=== PATIENT | female | born 1975 | race Caucasian/White ===

== ENCOUNTER 2020-04-29 07:44 | Outpatient (REF) | payer OTHER, SELFPAY | END 2020-04-29 07:45 | disposition home or self-care (01) | LOC: HO.MDS 07:44 | PROVIDERS: PCP Internal Medicine; Visit Provider Internal Medicine Pulmonary Disease | DX: D86.2 Sarcoidosis of lung with sarcoidosis of lymph nodes (principal); K27.9 Peptic ulcer, site unspecified, unspecified as acute or chronic, without hemorrhage or perforation; F41.8 Other specified anxiety disorders; E66.9 Obesity, unspecified; F90.0 Attention-deficit hyperactivity disorder, predominantly inattentive type; K74.3 Primary biliary cirrhosis | CPT/HCPCS: 96413; 96415; J1745 ==

== ENCOUNTER 2020-05-27 07:37 | Outpatient (REF) | payer OTHER, SELFPAY | END 2020-05-27 07:38 | disposition home or self-care (01) | LOC: HO.MDS 07:37 | PROVIDERS: Visit Provider Internal Medicine Pulmonary Disease | DX: D86.9 Sarcoidosis, unspecified (principal); K27.9 Peptic ulcer, site unspecified, unspecified as acute or chronic, without hemorrhage or perforation; K74.3 Primary biliary cirrhosis; F41.1 Generalized anxiety disorder; F90.0 Attention-deficit hyperactivity disorder, predominantly inattentive type; E66.9 Obesity, unspecified | CPT/HCPCS: 96413; 96415; J1745 ==

== ENCOUNTER → 2020-07-20 13:19 | Outpatient (BNVA) | payer OTHER, SELFPAY | PROVIDERS: PCP Internal Medicine; Visit Provider Internal Medicine Pulmonary Disease | DX: Z13.89 Encounter for screening for other disorder (principal) ==

== ENCOUNTER 2020-07-22 07:49 | Outpatient (REF) | payer OTHER, SELFPAY | END 2020-07-22 07:50 | disposition home or self-care (01) | LOC: HO.MDS 07:49 | PROVIDERS: Visit Provider Internal Medicine Pulmonary Disease | DX: D86.9 Sarcoidosis, unspecified (principal) | CPT/HCPCS: 96413; 96415; J1745 ==

== ENCOUNTER → 2020-09-20 09:32 | Outpatient (BNVA) | payer OTHER, SELFPAY | PROVIDERS: PCP Internal Medicine; Visit Provider Internal Medicine Pulmonary Disease ==

== ENCOUNTER 2020-10-05 10:04 | Outpatient (REF) | payer OTHER, SELFPAY ==
--- NOTE | ~2020-10-05 | XR_ITS ---
EXAMINATION: XR PELVIS XR BILATERAL HAND XR BILATERAL KNEE CLINICAL INFORMATION: Pain. COMPARISON: None TECHNIQUE: Pelvis one view. 3 views each hand. 4 views each knee. FINDINGS: Pelvis: There is normal symmetry of bilateral hip joints and SI joints. Visualized bones are grossly unremarkable. No fracture or lytic process seen. There is no soft tissue mass in the pelvis. Left knee: The bones and joints are unremarkable. No loose bodies, bony erosive changes or fracture seen. There is no abnormal joint effusion. Right knee: The bones and joints are unremarkable. The joint space is maintained normal. No bony erosive changes, loose bodies or joint effusion seen. Right hand: The bones and joint space is normal. No bony erosive changes. No spurring. No fracture or soft tissues are normal. Left hand: The bones and joint space is normal. No bony erosive changes. No spurring. No acute fracture. The left wrist appears unremarkable as well. The soft tissues are normal. XR/XR knee LT 3V IMPRESSION: 1. Unremarkable AP pelvis exam. 2. Unremarkable bilateral knee exam. 3. Unremarkable bilateral hand exam.
--- NOTE | ~2020-10-05 | XR_ITS ---
EXAMINATION: XR PELVIS XR BILATERAL HAND XR BILATERAL KNEE CLINICAL INFORMATION: Pain. COMPARISON: None TECHNIQUE: Pelvis one view. 3 views each hand. 4 views each knee. FINDINGS: Pelvis: There is normal symmetry of bilateral hip joints and SI joints. Visualized bones are grossly unremarkable. No fracture or lytic process seen. There is no soft tissue mass in the pelvis. Left knee: The bones and joints are unremarkable. No loose bodies, bony erosive changes or fracture seen. There is no abnormal joint effusion. Right knee: The bones and joints are unremarkable. The joint space is maintained normal. No bony erosive changes, loose bodies or joint effusion seen. Right hand: The bones and joint space is normal. No bony erosive changes. No spurring. No fracture or soft tissues are normal. Left hand: The bones and joint space is normal. No bony erosive changes. No spurring. No acute fracture. The left wrist appears unremarkable as well. The soft tissues are normal. XR/XR pelvis 1-2V IMPRESSION: 1. Unremarkable AP pelvis exam. 2. Unremarkable bilateral knee exam. 3. Unremarkable bilateral hand exam.
--- NOTE | ~2020-10-05 | XR_ITS ---
EXAMINATION: XR PELVIS XR BILATERAL HAND XR BILATERAL KNEE CLINICAL INFORMATION: Pain. COMPARISON: None TECHNIQUE: Pelvis one view. 3 views each hand. 4 views each knee. FINDINGS: Pelvis: There is normal symmetry of bilateral hip joints and SI joints. Visualized bones are grossly unremarkable. No fracture or lytic process seen. There is no soft tissue mass in the pelvis. Left knee: The bones and joints are unremarkable. No loose bodies, bony erosive changes or fracture seen. There is no abnormal joint effusion. Right knee: The bones and joints are unremarkable. The joint space is maintained normal. No bony erosive changes, loose bodies or joint effusion seen. Right hand: The bones and joint space is normal. No bony erosive changes. No spurring. No fracture or soft tissues are normal. Left hand: The bones and joint space is normal. No bony erosive changes. No spurring. No acute fracture. The left wrist appears unremarkable as well. The soft tissues are normal. XR/XR knee RT 3V IMPRESSION: 1. Unremarkable AP pelvis exam. 2. Unremarkable bilateral knee exam. 3. Unremarkable bilateral hand exam.
--- NOTE | ~2020-10-05 | XR_ITS ---
EXAMINATION: XR PELVIS XR BILATERAL HAND XR BILATERAL KNEE CLINICAL INFORMATION: Pain. COMPARISON: None TECHNIQUE: Pelvis one view. 3 views each hand. 4 views each knee. FINDINGS: Pelvis: There is normal symmetry of bilateral hip joints and SI joints. Visualized bones are grossly unremarkable. No fracture or lytic process seen. There is no soft tissue mass in the pelvis. Left knee: The bones and joints are unremarkable. No loose bodies, bony erosive changes or fracture seen. There is no abnormal joint effusion. Right knee: The bones and joints are unremarkable. The joint space is maintained normal. No bony erosive changes, loose bodies or joint effusion seen. Right hand: The bones and joint space is normal. No bony erosive changes. No spurring. No fracture or soft tissues are normal. Left hand: The bones and joint space is normal. No bony erosive changes. No spurring. No acute fracture. The left wrist appears unremarkable as well. The soft tissues are normal. XR/XR hand RT min 3V IMPRESSION: 1. Unremarkable AP pelvis exam. 2. Unremarkable bilateral knee exam. 3. Unremarkable bilateral hand exam.
--- NOTE | ~2020-10-05 | XR_ITS ---
EXAMINATION: XR PELVIS XR BILATERAL HAND XR BILATERAL KNEE CLINICAL INFORMATION: Pain. COMPARISON: None TECHNIQUE: Pelvis one view. 3 views each hand. 4 views each knee. FINDINGS: Pelvis: There is normal symmetry of bilateral hip joints and SI joints. Visualized bones are grossly unremarkable. No fracture or lytic process seen. There is no soft tissue mass in the pelvis. Left knee: The bones and joints are unremarkable. No loose bodies, bony erosive changes or fracture seen. There is no abnormal joint effusion. Right knee: The bones and joints are unremarkable. The joint space is maintained normal. No bony erosive changes, loose bodies or joint effusion seen. Right hand: The bones and joint space is normal. No bony erosive changes. No spurring. No fracture or soft tissues are normal. Left hand: The bones and joint space is normal. No bony erosive changes. No spurring. No acute fracture. The left wrist appears unremarkable as well. The soft tissues are normal. XR/XR hand LT min 3V IMPRESSION: 1. Unremarkable AP pelvis exam. 2. Unremarkable bilateral knee exam. 3. Unremarkable bilateral hand exam.
[2020-10-05 15:46] LABS: MANUAL DIFF FLAG NO
[2020-10-05 15:52] LABS: Basophils Percent Auto 0.3 % (0-2); Eosinophils Absolute Auto 0.3 X10*3/uL (0.0-0.4); Eosinophils Percent Auto 5.1 % (0-4); Hematocrit 39.8 % (37-47); Hemoglobin 13.3 g/dl (12.0-16.0); Imm Gran Abs Auto 0.01 X10*3/uL (0.00-0.03); Imm Gran Pct Auto 0.2 % (0.0-0.4); Lymphocytes Absolute Auto 1.5 X10*3/uL (1.2-4.9); Lymphocytes Percent Auto 25.2 % (20-40); Mean Corpuscular HGB Conc 33.4 g/dl (31.0-35.0); Mean Corpuscular Hemoglobin 30.4 pg (27.0-33.0); Mean Corpuscular Volume 90.9 fL (80-98); Mean Platelet Volume 12.2 fL (9.4-12.3); Monocytes Absolute Auto 0.5 X10*3/uL (0.1-1.2); Monocytes Percent Auto 8.8 % (2-11); Neutrophils Absolute Auto 3.6 X10*3/uL (2.0-8.3); Neutrophils Percent Auto 60.4 % (45-73); Platelet Count 232 X10*3/uL (160-400); Red Blood Count 4.38 X10*6/uL (4.20-5.50); Red Cell Distribution Width 12.9 % (11.0-16.0); White Blood Count 5.9 X10*3/uL (4.8-10.8)
[2020-10-05 16:06] LABS: Prothrombin Time 12.4 SEC (10.8-13.0)
[2020-10-05 16:32] LABS: Alanine Aminotransferase 132 U/L (0-31); Albumin Level 4.3 g/dL (3.5-5.0); Alkaline Phosphatase 213 U/L (39-117); Aspartate Amino Transferase 76 U/L (5-31); Bilirubin Direct 0.4 mg/dL (0.0-0.5); Gamma Glutamyl Transpeptidase 168 U/L (7-33); Total Protein 7.8 g/dL (6.5-8.0)
[2020-10-05 16:43] LABS: Vitamin D 25-OH Total 23.4 ng/mL (>30)
[2020-10-06 07:57] LABS: Hepatitis A Antibody IgG Nonreactive (Nonreactive); ~Hepatitis A Antibody IgG 0.84 S/CO (0.00-0.99)
[2020-10-06 08:24] LABS: HBc Num1 0.36 S/CO (0.00-0.79); Hepatitis B Core Antibody Nonreactive (Nonreactive)
[2020-10-06 08:45] LABS: HBS Num1 1.14 mIU/mL (0-7.99); HBsAGNum1 0.26 S/CO (0.00-0.99); Hepatitis B Surface Antigen Negative (Negative); ~Hepatitis B Surface Antibody NONREACTIVE (Nonreactive)
[2020-10-08 18:46] LABS: TS Negative Control Passed; TS Panel A 0; TS Panel B 0; TS Positive Control Passed; TSpotTB Negative (SeeBelow)
[2020-10-09 10:37] LABS: Vitamin A 31 mcg/dL (38-98)
== END 2020-10-05 10:05 | disposition home or self-care (01) ==
LOC: HO.LAB 10:04
PROVIDERS: Absent Provider Student in an Organized Health Care Education/Training Program; PCP Internal Medicine; Referring Provider Internal Medicine Gastroenterology; Visit Provider Internal Medicine Pulmonary Disease
DX: M25.50 Pain in unspecified joint (principal); G62.9 Polyneuropathy, unspecified; R26.89 Other abnormalities of gait and mobility; D86.0 Sarcoidosis of lung; J40 Bronchitis, not specified as acute or chronic; K74.3 Primary biliary cirrhosis
CPT/HCPCS: 36415; 72170; 73130; 73562; 80076; 82306; 82977; 84590; 85025; 85610; 86481; 86704; 86706; 86708; 87340

== ENCOUNTER 2020-10-15 11:55 | Outpatient (REF) | payer OTHER, SELFPAY | END 2020-10-15 11:56 | disposition home or self-care (01) | LOC: HO.MDS 11:55 | PROVIDERS: PCP Internal Medicine; Visit Provider Internal Medicine Pulmonary Disease | DX: D86.9 Sarcoidosis, unspecified (principal) | CPT/HCPCS: 96375; 96413; 96415; J1200; J1745 ==

== ENCOUNTER → 2020-11-01 13:18 | Outpatient (BNVA) | payer OTHER, SELFPAY | PROVIDERS: PCP Internal Medicine; Visit Provider Internal Medicine Gastroenterology ==

== ENCOUNTER 2020-12-13 08:26 | Outpatient (REF) | payer OTHER, SELFPAY ==
[2020-12-13 09:07] LABS: MANUAL DIFF FLAG NO
[2020-12-13 09:19] LABS: Basophils Percent Auto 0.4 % (0-2); Eosinophils Absolute Auto 0.2 X10*3/uL (0.0-0.4); Eosinophils Percent Auto 2.9 % (0-4); Hematocrit 40.6 % (37-47); Hemoglobin 13.5 g/dl (12.0-16.0); Imm Gran Abs Auto 0.02 X10*3/uL (0.00-0.03); Imm Gran Pct Auto 0.2 % (0.0-0.4); Lymphocytes Absolute Auto 2.8 X10*3/uL (1.2-4.9); Lymphocytes Percent Auto 34.6 % (20-40); Mean Corpuscular HGB Conc 33.3 g/dl (31.0-35.0); Mean Corpuscular Hemoglobin 30.4 pg (27.0-33.0); Mean Corpuscular Volume 91.4 fL (80-98); Mean Platelet Volume 11.9 fL (9.4-12.3); Monocytes Absolute Auto 0.7 X10*3/uL (0.1-1.2); Monocytes Percent Auto 8.7 % (2-11); Neutrophils Absolute Auto 4.3 X10*3/uL (2.0-8.3); Neutrophils Percent Auto 53.2 % (45-73); Platelet Count 243 X10*3/uL (160-400); Red Blood Count 4.44 X10*6/uL (4.20-5.50); Red Cell Distribution Width 12.7 % (11.0-16.0); White Blood Count 8.1 X10*3/uL (4.8-10.8)
[2020-12-13 09:28] LABS: Glucose Urine UA NEG (NEG); Leukocyte Esterase Urine NEG (NEG); Nitrite Urine NEG (NEG); Specific Gravity - Urine >= 1.030 (1.005-1.025); Urine Blood NEG (NEG); Urine Ketones NEG (NEG); Urine Protein NEG (NEG-TRACE)
[2020-12-13 09:29] LABS: Appearance Urine CLEAR; Color Urine YELLOW
[2020-12-13 09:38] LABS: Alanine Aminotransferase 58 U/L (0-31); Albumin Level 3.9 g/dL (3.5-5.0); Alkaline Phosphatase 184 U/L (39-117); Anion Gap 15 (12-20); Aspartate Amino Transferase 29 U/L (5-31); Bilirubin Total 0.6 mg/dL (0.0-1.0); Blood Urea Nitrogen 17 mg/dL (9-16); C Reactive Protein 0.35 mg/dL (< or = 0.50); Calcium 9.6 mg/dL (8.4-10.2); Carbon Dioxide 28 mmol/L (22-29); Chloride 103 mmol/L (96-108); Estimated Glomerular Filt Rate > 60; Glucose Random 67 mg/dL (60-115); Potassium 3.6 mmol/L (3.3-5.1); Sodium 142 mmol/L (135-145); Total Protein 7.2 g/dL (6.5-8.0)
[2020-12-13 09:47] LABS: Calcium Oxalate Crystals Urine 2+ /LPF; RBC Urine 0 /HPF (0); Squamous Epithelial Cell Urine TRACE /LPF; WBC Urine 0 /HPF (0-4)
[2020-12-13 09:53] LABS: Rheumatoid Factor < 15.0 IU/mL (<15.0)
[2020-12-13 09:56] LABS: Thyroid Stimulating Hormone 1.07 uIU/mL (0.32-4.0)
[2020-12-13 11:03] LABS: Erythrocyte Sedimentation Rate 65 MM/HR (0-20)
[2020-12-14 08:52] LABS: Lyme Abs Screen <0.90 index
[2020-12-14 11:16] LABS: Complement C3 71 mg/dL (83-193)
[2020-12-14 11:42] LABS: Anti DNA DS Antibody 3 IU/mL; Antibody to SS-A Antigen <1.0 NEG AI (<1.0 NEG); Antibody to SS-B Antigen <1.0 NEG AI (<1.0 NEG); SM/Ribonucleoprotein Ab <1.0 NEG AI (<1.0 NEG); Smith Protein <1.0 NEG AI (<1.0 NEG)
[2020-12-14 21:22] LABS: Cyclic Citrullinated Peptide <16 UNITS
[2020-12-15 14:47] LABS: ANA Titer 2 > OR = 1:1280 titer; Anti Nuclear Antibody Screen POSITIVE (NEGATIVE)
[2020-12-17 01:07] LABS: Angiotensin Converting Enzyme 52 U/L (9-67)
[2020-12-17 14:02] LABS: Vitamin D 25-OH, D2 <4 ng/mL; Vitamin D 25-OH, D3 40 ng/mL; Vitamin D 25-OH, Total 40 ng/mL (30-100)
[2020-12-17 15:17] LABS: Mitochondrial Antibodies POSITIVE (NEGATIVE)
== END 2020-12-13 08:27 | disposition home or self-care (01) ==
LOC: HO.LAB 08:26
PROVIDERS: Absent Provider Internal Medicine Gastroenterology; PCP Internal Medicine; Visit Provider Student in an Organized Health Care Education/Training Program
DX: K74.3 Primary biliary cirrhosis (principal); M25.50 Pain in unspecified joint
CPT/HCPCS: 36415; 80053; 81001; 82164; 82306; 84443; 85025; 85652; 86038; 86039; 86140; 86160; 86200; 86225; 86235; 86255; 86256; 86431; 86617; 86618

== ENCOUNTER 2020-12-13 08:47 | Outpatient (REF) | payer OTHER, SELFPAY | END 2020-12-13 08:48 | disposition home or self-care (01) | LOC: HO.MDS 08:47 | PROVIDERS: PCP Internal Medicine; Visit Provider Internal Medicine Pulmonary Disease | DX: D86.9 Sarcoidosis, unspecified (principal) | CPT/HCPCS: 96375; 96413; 96415; J1200; J1745 ==

== ENCOUNTER → 2020-12-28 15:48 | Outpatient (BNVA) | payer OTHER, SELFPAY | PROVIDERS: PCP Internal Medicine; Visit Provider Student in an Organized Health Care Education/Training Program ==

== ENCOUNTER → 2021-01-18 09:51 | Outpatient (BNVA) | payer OTHER, SELFPAY | PROVIDERS: PCP Internal Medicine; Visit Provider Internal Medicine Pulmonary Disease ==

== ENCOUNTER 2021-02-23 13:01 | Emergency (ER) | payer OTHER, SELFPAY ==
[2021-02-23 13:21] VITALS: BP 122/71; PULSE 101; RESP 16; TEMP 36.4; O2SAT 94; BMI 30.5
[2021-02-23] MEDS: Lidocaine HCl 1%/Epi 1:100,000 20 ML VIAL INFILTRATI (14:02)
--- NOTE | 2021-02-23 15:15 | ED.WOUNDLAC ---
HPI - Wound/Laceration General Chief Complaint: Wound/Laceration Stated Complaint: thumb lac Time Seen by Provider: 02/23/21 13:49 Source: patient Mode of arrival: ambulatory History of Present Illness HPI narrative: 45-year-old female with a past medical history of ADHD, anxiety, depression, PUD, Sarcoidosis on immunosuppressants, biliary cirrhosis, presenting to the ED complaining of left thumb laceration s/p using monica in garden [employer]. Tetanus up-to-date. Denies taking anticoagulation. Denies numbness, tingling, weakness, injury to other area Onset (ago): hour(s) Related Data Home Medications Medication Instructions Recorded Confirmed estradiol 1 mg tablet 1 mg PO DAILY 07/02/20 11/01/20 omeprazole 40 mg capsule,delayed 40 mg PO DAILY 07/02/20 11/01/20 release Previous Rx's Medication Instructions Recorded escitalopram oxalate 10 mg tablet 10 mg PO DAILY #30 tab 08/23/20 cholecalciferol (vitamin D3) 125 125 mcg PO DAILY 60 Days #60 cap 09/23/20 mcg (5,000 unit) capsule fluticasone furoate 200 1 ea PO DAILY #60 ea 10/06/20 mcg-vilanterol 25 mcg/dose inhalation powder (Breo Ellipta) albuterol sulfate 90 mcg/actuation 2 puff PO Q4-6H PRN #8.5 g 10/11/20 aerosol inhaler prednisone 10 mg tablet See Rx Instructions PO DAILY 12 12/07/20 Days #30 tab prednisone 10 mg tablet See Rx Instructions PO DAILY 30 01/18/21 Days #130 tab dextroamphetamine-amphetamine ER 20 mg PO DAILY #60 cap 01/25/21 10 mg 24hr capsule,extend release (Adderall XR) ursodiol 300 mg capsule 1,470 mg PO DAILY 90 Days #441 cap 02/14/21 prednisone 10 mg tablet 30 mg PO DAILY 14 Days #42 tab 02/18/21 cephalexin 500 mg capsule 500 mg PO QID 7 Days #28 cap 02/23/21 Allergies Allergy/AdvReac Type Severity Reaction Status Date / Time infliximab [From Remicade] Allergy Severe Anaphylaxis Verified 01/18/21 09:52 Review of Systems Review of Systems: Constitutional: No Fever, No Chills Cardiovascular: No Chest Pain, No SOB Musculoskeletal: + joint pain Skin: + Skin Lesions, No rash Neuro: No Weakness, No Numbness, No Paresthesias Yes all other systems are reviewed and are negative Neurologic: Denies Sensory deficit (Neuro) [facility] Past Medical History Attestation statement: The following information was validated with the patient. Medical History ADHD Anxiety and depression Obesity (BMI 30-39.9) Peptic ulcer disease Peripheral neuropathy Primary biliary cirrhosis Sarcoidosis of lung Surgical History History of cholecystectomy History of esophagogastroduodenoscopy (EGD) History of total abdominal hysterectomy and bilateral salpingo-oophorectomy Family History Family History Father Lung cancer Diabetes Hypertension Mother Breast cancer Maternal Grandmother Breast cancer Social History Social History (Updated 12/28/20 @ 15:54 by Sangeeta Lewis CMA) Household Members: Spouse and Children Alcohol intake: never Patient Tobacco Use Status: Never used Tobacco Advance Directives: Yes Advance Directives Information Provided: No Advance Directives on File: No Patient : No Current occupational status: unemployed Physical Exam Vital Signs: Vital Signs: Last Vital Signs Temp 97.6 F 02/23/21 13:21 Pulse 101 H 02/23/21 13:21 Resp 16 02/23/21 13:21 BP 122/71 02/23/21 13:21 Pulse Ox 94 02/23/21 13:21 Body Mass Index 30.5 Const: General: cooperative and healthy appearing Orientation/consciousness: patient oriented x3 Limitations: no limitations HENMT: Head: Yes normal to inspection Ears: hearing grossly normal bilaterally General nose exam: Normal external nose present Face and sinus: Yes normal facial exam Eyes: General: appearance normal, both eyes and all related structures EOM: EOMs intact bilaterally Neck: Neck: Yes normal visual inspection Resp: Effort & Inspection: normal respiratory effort Cardio: Rate: regular rate Peripheral pulses: radial pulses present Skin: Other: Left thumb with tip avulsion. Active bleeding. Sensation intact to light touch. FROM all digits intact. Rashes: no rashes Neuro: General: patient oriented x3, tone normal and moves all extremities Gait exam (Neuro): Normal gait present Sensory Exam: No Sensory deficit (Neuro) Extrem: General: Yes normal to inspection MDM - Wound/Laceration MDM Narrative Medical decision making narrative: 45-year-old female with a past medical history of ADHD, anxiety, depression, PUD, Sarcoidosis on immunosuppressants, biliary cirrhosis, presenting to the ED complaining of left thumb laceration s/p using monica in garden [employer]. On exam mildly tachycardic likely from pain, physical exam as above. Will soak patient in lidocaine with epi to stop bleeding and then Dermabond wound for wound protection/protective layer Will discharge patient with Keflex as monica were dirty and she is immunocompromised Procedures Laceration Laceration 1: Site: hand Side (If applicable): left Depth: simple, single layer Pre-repair: irrigated extensively Skin layer closed with: other (Dermabond) Discharge Plan Discharge Clinical Impression: Avulsion of skin Patient Disposition: Home, Self-Care Instructions: Skin Avulsion (ED) Additional Instructions: Your skin was avulsed today while gardening, Dermabond/single was applied to help provide a protective boot trimmer, this will follow-up on its own, do not pick at it, avoid excessive soaking/water or emersion in liquid Keep area dry and clean Keflex as an antibiotic, base take as prescribed Take Tylenol and Motrin at home for pain Follow-up with your doctor Prescriptions: New cephalexin 500 mg capsule 500 mg PO QID 7 Days Qty: 28 RF: 0 No Action escitalopram oxalate 10 mg tablet 10 mg PO DAILY Qty: 30 RF: 5 fluticasone furoate-vilanterol [Breo Ellipta] 200-25 mcg/dose blister with device 1 ea PO DAILY Qty: 60 RF: 3 albuterol sulfate 90 mcg/actuation HFA aerosol inhaler 2 puff PO Q4-6H PRN (Reason: for wheezing) Qty: 8.5 RF: 0 prednisone 10 mg tablet See Rx Instructions PO DAILY 12 Days Qty: 30 RF: 0 dextroamphetamine-amphetamine [Adderall XR] 10 mg capsule,extended release 24hr 20 mg PO DAILY Qty: 60 RF: 0 ursodiol 300 mg capsule 1,470 mg PO DAILY 90 Days Qty: 441 RF: 1 prednisone 10 mg tablet 30 mg PO DAILY 14 Days Qty: 42 RF: 0 estradiol 1 mg tablet 1 mg PO DAILY RF: 0 omeprazole 40 mg capsule,delayed release(DR/EC) 40 mg PO DAILY RF: 0 cholecalciferol (vitamin D3) 125 mcg (5,000 unit) capsule 125 mcg PO DAILY 60 Days Qty: 60 RF: 3 prednisone 10 mg tablet See Rx Instructions PO DAILY 30 Days Qty: 130 RF: 0 Referrals: Po,Hima Bates MD [Primary Care Provider] - 1 week Interventions: ED Discharge Assessment Last Done: 02/23/21 15:34
== END 2021-02-23 15:35 | disposition home or self-care (01) ==
PROVIDERS: Emergency Provider Emergency Medicine; PCP Internal Medicine
DX: S61.012A Laceration without foreign body of left thumb without damage to nail, initial encounter (principal); W27.1XXA Contact with garden tool, initial encounter; Y93.H2 Activity, gardening and landscaping; Y92.017 Garden or yard in single-family (private) house as the place of occurrence of the external cause; Y99.9 Unspecified external cause status
CPT/HCPCS: 12001; 99283; 99284

== ENCOUNTER → 2021-03-01 11:25 | Outpatient (BNVA) | payer OTHER, SELFPAY | PROVIDERS: PCP Internal Medicine; Visit Provider Internal Medicine Pulmonary Disease ==

== ENCOUNTER 2021-04-19 10:48 | Outpatient (REF) | payer OTHER, SELFPAY ==
[2021-04-19 11:35] LABS: Appearance Urine HAZY; Color Urine YELLOW; Glucose Urine UA NEG (NEG); Leukocyte Esterase Urine 1+ (NEG); Nitrite Urine NEG (NEG); UACC Culture Trigger YES; Urine Blood TRACE (NEG); Urine Ketones NEG (NEG); Urine Protein NEG (NEG-TRACE)
[2021-04-19 11:57] LABS: Bacteria Urine TRACE /LPF; Squamous Epithelial Cell Urine TRACE /LPF; WBC Urine 30-49 /HPF (0-4)
== END 2021-04-19 10:49 | disposition home or self-care (01) ==
LOC: HO.LAB 10:48
PROVIDERS: PCP Internal Medicine; Visit Provider Internal Medicine
DX: R30.9 Painful micturition, unspecified (principal)
CPT/HCPCS: 81001; 87086; 87088; 87186

== ENCOUNTER → 2021-05-31 10:48 | Outpatient (BNVA) | payer OTHER, SELFPAY | PROVIDERS: PCP Internal Medicine; Visit Provider Internal Medicine Pulmonary Disease ==

== ENCOUNTER 2021-06-14 11:16 | Outpatient (REF) | payer OTHER, SELFPAY | END 2021-06-14 11:17 | disposition home or self-care (01) | LOC: HO.MDS 11:16 | PROVIDERS: PCP Internal Medicine; Visit Provider Internal Medicine Pulmonary Disease | DX: D86.9 Sarcoidosis, unspecified (principal) | CPT/HCPCS: 96413; 96415; J1745 ==

== ENCOUNTER 2021-06-28 08:22 | Outpatient (REF) | payer OTHER, SELFPAY | END 2021-06-28 08:23 | disposition home or self-care (01) | LOC: HO.MDS 08:22 | PROVIDERS: PCP Internal Medicine; Visit Provider Internal Medicine Pulmonary Disease | DX: D86.9 Sarcoidosis, unspecified (principal) | CPT/HCPCS: 96375; 96413; 96415; J1200; J1745; J2405 ==

== ENCOUNTER 2021-07-05 12:43 | Outpatient (REF) | payer OTHER, SELFPAY ==
[2021-07-05 12:52] LABS: MANUAL DIFF FLAG NO
[2021-07-05 13:28] LABS: Basophils Percent Auto 0.4 % (0-2); Eosinophils Absolute Auto 0.2 X10*3/uL (0.0-0.4); Eosinophils Percent Auto 3.6 % (0-4); Hematocrit 43.6 % (37.0-47.0); Hemoglobin 14.3 g/dl (12.0-16.0); Imm Gran Abs Auto 0.01 X10*3/uL (0.00-0.03); Imm Gran Pct Auto 0.2 % (0.0-0.4); Lymphocytes Percent Auto 36.4 % (20-40); Mean Corpuscular HGB Conc 32.8 g/dl (31.0-35.0); Mean Corpuscular Hemoglobin 30.2 pg (27.0-33.0); Mean Platelet Volume 12.6 fL (9.4-12.3); Monocytes Absolute Auto 0.6 X10*3/uL (0.1-1.2); Monocytes Percent Auto 10.5 % (2-11); Neutrophils Absolute Auto 2.7 x10*3/uL (2.0-8.3); Neutrophils Percent Auto 48.9 % (45-73); Platelet Count 219 X10*3/uL (160-400); Red Blood Count 4.74 X10*6/uL (4.20-5.50); Red Cell Distribution Width 12.4 % (11.0-16.0); White Blood Count 5.5 X10*3/uL (4.8-10.8)
[2021-07-05 13:37] LABS: INTERNATIONAL NORM RATIO 0.9 (0.9-1.1); Prothrombin Time 10.5 SEC (9.9-13.0)
[2021-07-05 13:48] LABS: Alanine Aminotransferase 105 U/L (0-31); Alkaline Phosphatase 201 U/L (39-117); Aspartate Amino Transferase 50 U/L (5-31); Bilirubin Direct 0.2 mg/dL (0.0-0.5); Bilirubin Total 0.5 mg/dL (0.0-1.0); Gamma Glutamyl Transpeptidase 232 U/L (7-33); Total Protein 7.7 g/dL (6.5-8.0)
== END 2021-07-05 12:44 | disposition home or self-care (01) ==
LOC: HO.LAB 12:43
PROVIDERS: Visit Provider Internal Medicine Gastroenterology
DX: K74.3 Primary biliary cirrhosis (principal)
CPT/HCPCS: 36415; 80076; 82977; 85025; 85610

== ENCOUNTER → 2021-08-02 10:14 | Outpatient (BNVA) | payer OTHER, SELFPAY | PROVIDERS: PCP Internal Medicine; Visit Provider Internal Medicine Pulmonary Disease ==

== ENCOUNTER 2021-08-08 09:20 | Outpatient (REF) | payer OTHER, SELFPAY | END 2021-08-08 09:21 | disposition home or self-care (01) | LOC: HO.MDS 09:20 | PROVIDERS: Visit Provider Internal Medicine Pulmonary Disease | DX: D86.9 Sarcoidosis, unspecified (principal) | CPT/HCPCS: 96375; 96413; 96415; J1200; J1745 ==

== ENCOUNTER → 2021-09-15 09:41 | Outpatient (BNVA) | payer OTHER, SELFPAY | PROVIDERS: PCP Internal Medicine; Visit Provider Internal Medicine Pulmonary Disease ==

== ENCOUNTER 2021-09-19 08:38 | Outpatient (REF) | payer OTHER, SELFPAY | END 2021-09-19 08:39 | disposition home or self-care (01) | LOC: HO.MDS 08:38 | PROVIDERS: Visit Provider Internal Medicine Pulmonary Disease | DX: D86.9 Sarcoidosis, unspecified (principal) | CPT/HCPCS: 96375; 96413; 96415; J1200; J1745 ==

== ENCOUNTER 2021-10-31 08:20 | Outpatient (REF) | payer OTHER, SELFPAY | END 2021-10-31 08:21 | disposition home or self-care (01) | LOC: HO.MDS 08:20 | PROVIDERS: Visit Provider Internal Medicine Pulmonary Disease | DX: D86.9 Sarcoidosis, unspecified (principal) | CPT/HCPCS: 96375; 96413; 96415; J1200; J1745 ==

== ENCOUNTER 2021-12-12 08:16 | Outpatient (REF) | payer OTHER, SELFPAY | END 2021-12-12 08:17 | disposition home or self-care (01) | LOC: HO.MDS 08:16 | PROVIDERS: Visit Provider Internal Medicine Pulmonary Disease | DX: D86.9 Sarcoidosis, unspecified (principal) | CPT/HCPCS: 96375; 96413; 96415; J1200; J1745 ==

== ENCOUNTER 2022-01-19 09:16 | Outpatient (REF) | payer OTHER, SELFPAY ==
[2022-01-19 09:30] LABS: MANUAL DIFF FLAG NO
[2022-01-19 09:58] LABS: Basophils Percent Auto 0.4 % (0-2); Eosinophils Absolute Auto 0.6 X10*3/uL (0.0-0.4); Eosinophils Percent Auto 11.3 % (0-4); Hematocrit 38.9 % (37.0-47.0); Hemoglobin 13.1 g/dl (12.0-16.0); Imm Gran Abs Auto 0.01 X10*3/uL (0.00-0.03); Imm Gran Pct Auto 0.2 % (0.0-0.4); Lymphocytes Absolute Auto 1.3 X10*3/uL (1.2-4.9); Lymphocytes Percent Auto 23.6 % (20-40); Mean Corpuscular HGB Conc 33.7 g/dl (31.0-35.0); Mean Corpuscular Hemoglobin 30.8 pg (27.0-33.0); Mean Corpuscular Volume 91.3 fL (80.0-98.0); Mean Platelet Volume 11.9 fL (9.4-12.3); Monocytes Absolute Auto 0.5 X10*3/uL (0.1-1.2); Monocytes Percent Auto 8.5 % (2-11); Neutrophils Absolute Auto 3.1 x10*3/uL (2.0-8.3); Platelet Count 218 X10*3/uL (160-400); Red Blood Count 4.26 X10*6/uL (4.20-5.50); Red Cell Distribution Width 12.9 % (11.0-16.0); White Blood Count 5.5 X10*3/uL (4.8-10.8)
[2022-01-19 10:45] LABS: Free T4 (Free Thyroxine) 1.01 ng/dL (0.71-1.85); Vitamin D 25-OH Total 32.9 ng/mL (>30)
[2022-01-19 10:45] LABS: Appearance Urine HAZY; Color Urine YELLOW; Glucose Urine UA NEG (NEG); Leukocyte Esterase Urine NEG (NEG); Nitrite Urine NEG (NEG); PH 5.5 (5.0-8.0); Specific Gravity - Urine >= 1.030 (1.005-1.025); Urine Blood NEG (NEG); Urine Ketones NEG (NEG); Urine Protein NEG (NEG-TRACE)
[2022-01-19 10:49] LABS: Alanine Aminotransferase 113 U/L (0-31); Albumin Level 3.9 g/dL (3.5-5.0); Alkaline Phosphatase 406 U/L (39-117); Anion Gap 12 (12-20); Aspartate Amino Transferase 93 U/L (5-31); Bilirubin Total 0.8 mg/dL (0.0-1.0); Blood Urea Nitrogen 15 mg/dL (9-16); Calcium 9.4 mg/dL (8.4-10.2); Carbon Dioxide 26 mmol/L (22-29); Chloride 106 mmol/L (96-108); Cholesterol 214 mg/dL; Estimated Glomerular Filt Rate > 60; Glucose Random 105 mg/dL (60-115); HDL Cholesterol 50 mg/dL; LDL Cholesterol Calculated 150 mg/dl; Sodium 140 mmol/L (135-145); Total Protein 7.7 g/dL (6.5-8.0); Triglycerides 73 mg/dL
[2022-01-19 10:50] LABS: Erythrocyte Sedimentation Rate 85 MM/HR (0-20)
[2022-01-19 10:52] LABS: Mucus Urine 1+ /LPF; RBC Urine 0 /HPF (0); Squamous Epithelial Cell Urine TRACE /LPF; WBC Urine 0 /HPF (0-4)
[2022-01-19 11:28] LABS: Folate 16.1 ng/mL (> or = 4.0); Vitamin B12 774 pg/mL (200-900)
== END 2022-01-19 09:17 | disposition home or self-care (01) ==
LOC: HO.LAB 09:16
PROVIDERS: PCP Internal Medicine; Visit Provider Internal Medicine
DX: E78.00 Pure hypercholesterolemia, unspecified (principal); D86.0 Sarcoidosis of lung; N39.41 Urge incontinence
CPT/HCPCS: 36415; 80053; 80061; 81001; 82306; 82607; 82746; 84439; 84443; 85025; 85652

== ENCOUNTER 2022-01-24 08:16 | Outpatient (REF) | payer OTHER, SELFPAY | END 2022-01-24 08:17 | disposition home or self-care (01) | LOC: HO.MDS 08:16 | PROVIDERS: Visit Provider Internal Medicine Pulmonary Disease | DX: D86.9 Sarcoidosis, unspecified (principal) | CPT/HCPCS: 96375; 96413; 96415; J1200; J1745 ==

== ENCOUNTER 2022-02-01 09:44 | Outpatient (REF) | payer OTHER, SELFPAY ==
--- NOTE | ~2022-02-01 | US_ITS ---
EXAMINATION: US ABDOMEN LIMITED WITH LIVER ELASTOGRAPHY CLINICAL INFORMATION: Primary biliary cirrhosis. COMPARISON: Abdominal ultrasound dated 09/02/2019. TECHNIQUE: Real-time imaging of the abdominal viscera. Noninvasive ultrasound liver fibrosis assessment is performed using Starla ElastPQ point quantification shear wave elastography (2D-SWE) with a C5-2 MHz transducer. Multiple elastography samples are obtained. FINDINGS: PANCREAS: Normal. The visualized pancreatic head and body are normal in appearance. The remainder of the pancreas is obscured from visualization by the overlying bowel gas. LIVER: Normal. The liver demonstrates normal size, contour and echogenicity. No focal lesion or intrahepatic biliary duct dilatation. The right lobe measures 15.7 cm in length. The left lobe measures 10.4 cm in length. Portal flow is towards the liver (hepatopetal). Shear wave liver elastography median stiffness is 0.23 m/s (reference: normal median stiffness is 1.3 m/s or less). IQR/median stiffness to assess sampling precision is 0.19 (reference: good quality data set is IQR/median stiffness of 0.15 or less). GALLBLADDER: Surgically absent. COMMON BILE DUCT: Normal in caliber measuring 0.4 cm in diameter. RIGHT KIDNEY: Normal. No hydronephrosis. No renal calculi or focal parenchymal lesions. The kidney measures 10.5 cm in maximum dimension. FREE FLUID: None. US/US abdomen june w elastography IMPRESSION: Liver elastography: Although measurements suggest a high probability of normal liver stiffness, there is statistical variability of the sampling which decreases accuracy. REFERENCE: Society of Radiologists in Ultrasound Liver Stiffness Thresholds (2020): LIVER STIFFNESS THRESHOLDS: *Liver Stiffness equal or less than 1.3 m/s: High probability of being normal. *Liver Stiffness less than 1.7 m/s: In the absence of other known clinical signs, rules out compensated advanced chronic liver disease. *Liver Stiffness 1.7-2.1 m/s: Suggestive of compensated advanced chronic liver disease but need further test for confirmation. *Liver Stiffness over 2.1 m/s: Rules in compensated advanced chronic liver disease. *Liver Stiffness over 2.4 m/s: Suggestive of clinically significant portal hypertension. QUALITY OF DATA SET: *IQR/Median value equal or less than 0.15 implies a quality data set. *IQR/Median value over 0.15 implies a poor quality data set. SIGNIFICANT CHANGE FROM PRIOR EXAM: Significant change if liver stiffness measurement is 10% or greater from prior exam. OTHER CONSIDERATIONS: The stage of liver fibrosis may be overestimated in the setting of acute hepatitis, liver inflammation, elevated liver function tests, hepatic vascular congestion, obstructive cholestasis, non-fasting state, and infiltrative diseases such as amyloidosis and lymphoma. In some patients with NAFLD, the liver stiffness thresholds for compensated advanced chronic liver disease may be lower. In causes other than viral hepatitis and NAFLD, liver stiffness thresholds are not well established.
== END 2022-02-01 09:45 | disposition home or self-care (01) ==
LOC: HO.US 09:44
PROVIDERS: Visit Provider Internal Medicine Gastroenterology
DX: K74.3 Primary biliary cirrhosis (principal)
CPT/HCPCS: 76705; 76981

== ENCOUNTER 2022-02-06 10:21 | Outpatient (REF) | payer OTHER, SELFPAY ==
--- NOTE | ~2022-02-06 | CT_ITS ---
EXAMINATION: CT CHEST WITHOUT CONTRAST CLINICAL INFORMATION: 46-year-old female with sarcoidosis COMPARISON: None TECHNIQUE: Multidetector volumetric CT imaging of the chest was done. Axial MIP volume rendering provided. Sagittal and coronal reformatted images were obtained. This CT examination was performed using dose optimization techniques as appropriate, variously including the following: *Automated exposure control *Adjustment of mA and/or kV according to patient size (this includes techniques or standardized protocols for targeted exams where dose is matched to indication/reason for exam; i.e. extremities or head) *Use of iterative reconstruction technique DLP: 172 mGy-cm FINDINGS: ORDER ADMINISTRATOR: Unremarkable LUNGS: Lungs revealed multiple lung nodules, such as on the right there is 0.3 cm nodule seen medially on image 10, ill-defined 0.9 cm groundglass opacity nodule in the right lower lobe on image 13, subpleural right upper lobe nodule measured 0.3 cm on image 13, fissure base 0.3 cm nodule on image 21, fissure based 0.5 cm nodule on image 23, 1.1 cm nodule in the right middle lobe seen on image 28, fissure based 1.0 cm right middle lobe nodule on image 30 and 1.3 cm nodule in the right lower lobe subpleural. There is area of groundglass opacity in the right lower lobe abating costophrenic angle. On the left there is 0.7 cm groundglass opacity nodule in the left lower lobe seen on image 27, groundglass opacity 1.0 cm nodule seen on image 26, groundglass opacity 0.7 cm nodule seen on image 24 and 0.3 cm nodule in the left upper lobe seen on image 10, all series 11 MEDIASTINUM: There is mediastinal lymphadenopathy with pretracheal lymph node measured 1.7 cm. There is no obvious hilar lymphadenopathy. There is no cardiomegaly or pericardial effusion. Coronary artery calcifications not seen. PLEURA: There is no pleural effusion. No pleural mass or thickening. AXILLA: No lymphadenopathy. UPPER ABDOMEN: There is splenomegaly with the spleen measures 13.5 cm. Gallbladder is surgically absent. Visualized adrenal glands, pancreas, liver, kidneys are unremarkable. OSSEOUS STRUCTURES: Unremarkable. CT/CT chest wo con IMPRESSION: Numerous lung nodules. Mediastinal lymphadenopathy Mild splenomegaly. Fleischner guidelines were followed.
== END 2022-02-06 10:22 | disposition home or self-care (01) ==
LOC: HO.CT 10:21
PROVIDERS: PCP Internal Medicine; Visit Provider Internal Medicine Pulmonary Disease
DX: D86.0 Sarcoidosis of lung (principal)
CPT/HCPCS: 71250

== ENCOUNTER 2022-02-06 12:57 | Day surgery (SDC) | payer OTHER, SELFPAY ==
--- NOTE | 2022-02-03 09:05 | P.CONAN_ITS ---
Documented by User: Deanna Alfonso NP 02/03/22 09:08 HPI - Anesthesia Eval Consult details Narrative: 46yo F for Upper Endoscopy PMFSH Active Problems Active Problems: All Active Problems (Updated 01/31/22 @ 08:22 by Ruby Delgado MD) Osteoporosis (Acute) Granuloma of liver associated with sarcoidosis (Acute) Primary biliary cholangitis (Acute) Urgency incontinence (Acute) Varicose vein of leg (Acute) Generalized anxiety disorder (Acute) Annual visit declined (Acute) Pulmonary nodules (Acute) Skin rash (Acute) Balance problem (Acute) Peripheral neuropathy (Acute) Polyarthralgia (Acute) GERD with esophagitis (Acute) Bronchitis (Acute) Anxiety and depression (Acute) Annual physical exam (Acute) Elevated erythrocyte sedimentation rate (Acute) Arthralgia (Acute) Hypercholesterolemia (Acute) Vitamin D deficiency (Acute) Sarcoidosis of lung (Acute) Primary biliary cirrhosis (Acute) Obesity (BMI 30-39.9) (Acute) ADHD (Acute) Past Medical History Medical History ADHD Anxiety and depression Obesity (BMI 30-39.9) Peptic ulcer disease Peripheral neuropathy Primary biliary cirrhosis Sarcoidosis of lung Family History Family History (Updated 01/06/22 @ 14:02 by Hima Oquendo MD) Father Lung cancer Diabetes Hypertension Mother Breast cancer Maternal Grandmother Breast cancer Surgical History Surgical History History of cholecystectomy History of esophagogastroduodenoscopy (EGD) History of total abdominal hysterectomy and bilateral salpingo-oophorectomy Social History Social History (Updated 01/31/22 @ 07:49 by Navin Griffith RN) Household Members: Spouse and Children Housing: Apartment Alcohol intake: never Patient Tobacco Use Status: Never used Tobacco Years Smoked: quit 2010 x 10 years 1 pack per day e-Cigarette/Vaping Use: Never Used Second Hand Smoke Exposure: No Are you DNR?: No Advance Directives: No Advance Directives Information Provided: Yes Patient : No Current occupational status: unemployed Cognitive needs: No Hearing needs: No Vision needs: No Meds Allergies Allergy/AdvReac Type Severity Reaction Status Date / Time infliximab [From Remicade] AdvReac Intermediate Flushing Verified 01/31/22 07:45 Home Medications Medication Instructions Recorded Confirmed Last Taken Type estradiol 1 mg tablet 1 mg PO DAILY 07/02/20 01/31/22 Unknown History omeprazole 40 mg capsule,delayed 40 mg PO DAILY 07/02/20 01/31/22 Unknown History release infliximab 100 mg intravenous IV Q6W 01/31/22 01/31/22 Unknown History solution (Remicade) Exam Exam Date and Time: February 03, 2022 0905 Pertinent Lab Results Pertinent Lab Results: Laboratory Tests 07/05/21 01/19/22 01/19/22 12:51 09:27 09:27 WBC 5.5 Hgb 13.1 Hct 38.9 Plt Count 218 PT 10.5 INR 0.9 Sodium 140 Potassium 4.0 Chloride 106 Carbon Dioxide 26 BUN 15 Creatinine 0.74 Total Bilirubin 0.8 AST 93 H ALT 113 H Alkaline Phosphatase 406 H D Total Protein 7.7 Albumin 3.9 Narrative Narrative: US abdomen june w elastography 01/2022 IMPRESSION: Liver elastography:? Although measurements suggest a high probability of normal liver stiffness, there is statistical variability of the sampling which decreases accuracy. Assessment and Plan Assessment Anesthesia Assessment: Chart Reviewed Documented by User: Montana Coto MD 02/06/22 17:52 HPI - Anesthesia Eval Consult details Narrative: 46yo F for Upper Endoscopy Elevated AST ,ALT and ALP on labs on 01/19 . Afebrile , denies nausea , vomiting Case discussed with Dr. Delgado . Steroids being tapered down . [facility] Past Medical History Medical History ADHD Anxiety and depression Obesity (BMI 30-39.9) Peptic ulcer disease Peripheral neuropathy Primary biliary cirrhosis Sarcoidosis of lung Family History Family History (Updated 01/06/22 @ 14:02 by Hima Oquendo MD) Father Lung cancer Diabetes Hypertension Mother Breast cancer Maternal Grandmother Breast cancer Family history of problems with anesthesia: No Surgical History Surgical History History of cholecystectomy History of esophagogastroduodenoscopy (EGD) History of total abdominal hysterectomy and bilateral salpingo-oophorectomy History of Problems with Anesthesia: No Social History Social History (Updated 01/31/22 @ 07:49 by Navin Griffith RN) Household Members: Spouse and Children Housing: Apartment Alcohol intake: never Patient Tobacco Use Status: Never used Tobacco Years Smoked: quit 2010 x 10 years 1 pack per day e-Cigarette/Vaping Use: Never Used Second Hand Smoke Exposure: No Are you DNR?: No Advance Directives: No Advance Directives Information Provided: Yes Patient : No Current occupational status: unemployed Cognitive needs: No Hearing needs: No Vision needs: No Meds Allergies Allergy/AdvReac Type Severity Reaction Status Date / Time infliximab [From Remicade] AdvReac Intermediate Flushing Verified 01/31/22 07:45 Home Medications Medication Instructions Recorded Confirmed Last Taken Type estradiol 1 mg tablet 1 mg PO DAILY 07/02/20 01/31/22 Unknown History omeprazole 40 mg capsule,delayed 40 mg PO DAILY 07/02/20 01/31/22 Unknown History release infliximab 100 mg intravenous IV Q6W 01/31/22 01/31/22 Unknown History solution (Remicade) Exam Airway Mallampati Class: III TM Dist: >3cm Neck ROM: Full Partial: Lower Loose/Missing/Broken Teeth: Yes Heart: S1,S2 Lungs: b/l breath sounds Assessment and Plan Assessment Anesthesia Assessment: Anesthesia Plan Discussed Final Anesthetic Review Family History of Problems with Anesthesia: No History of Problems with Anesthesia: No NPO: Yes ASA Class: III Final Preanesthetic Review: Meds/Allgs Chart Reviewed, Consent Obtained/Reviewed and Anes Risks/Benef Reviewed Patient Risk: Intermediate Procedure Risk: Intermediate Anesthetic Plan Anesthetic Plan: MAC: Disposition: Standard PACU
[2022-02-06 06:21] VITALS: BMI 31.8
[2022-02-06 13:13] VITALS: BP 97/66; PULSE 87; RESP 18; TEMP 36.3; O2SAT 98
[2022-02-06] MEDS: Lactated Ringers 1,000 ML 100 ML IVCONT (13:31)
--- NOTE | 2022-02-06 15:28 | MHC.SHP ---
Pre-Procedural Eval Section A Date of Service: 02/06/22 The patient is an INPATIENT: No Changes since office visit: Yes Patient answered all questions; No Cold of Flu in the past 2 weeks, No New Medical Problems and No Changes in Medication The History & Physical has been completed within 30 days and I have reviewed it.: Yes Section B Chief Complaint: reflux disease Allergies: Allergies Allergy/AdvReac Type Severity Reaction Status Date / Time infliximab [From Remicade] AdvReac Intermediate Flushing Verified 01/31/22 07:45 Plan I have reviewed the history and physical and performed a pertinent physical examination on my patient. No changes have occurred unless specified.
--- NOTE | 2022-02-06 15:29 | P.BOP_ITS ---
Brief Operative Note Date of Service: 02/06/22 Pre-op diagnosis: FU of GERD and PUD Post-op diagnosis: other (Hiatal hernia, erosive esophagitis, gastritis) Procedure: FLEXIBLE TRANSORAL UPPER GASTROINTESTINAL ENDOSCOPY WITH BIOPSIES Consent: Indications for the procedure and potential complications of bleeding, perforation, reaction to medications and missed diagnosis were discussed with the patient and informed consent was obtained. Instrument: Olympus GIF H 190 mid size upper endoscope Monitoring: Vital signs and clinical assessment, continuous EKG monitoring, Pulse oximetry, Carbon Dioxide monitoring and blood pressure monitoring were done throughout the procedure. Procedure: The patient was placed in the left lateral decubitis position and pre-procedure medications were administered and a bite block was placed. The endoscope was inserted into the mouth and advanced under direct vision to the third part of duodenum. A careful inspection was made as the upper endoscope was withdrawn including a retroflexed examination of the proximal stomach; Findings and interventions are described below. Findings: Larynx: Normal Esophagus: GE junction at 34 cms, hiatal hernia 34 to 37 cms. A 1 cms chronic appearing erosion at GE junction. A few focal chronic appearing linear erosions in the distal esophagus from 30 to 34 cms. Stomach: Mild diffuse gastric erythema with antral erosions. Biopsies were obtained. Grade 4 flap valve on retroflexed examination of the cardia. Duodenum: Normal bulb and descending duodenum - biopsies were obtained from 3rd part of duodenum to check for celiac sprue. Intervention: Biopsies as noted above Impression and Post Procedure Diagnosis: Endoscopy Findings: LARYNX: Changes suggestive of LPRD ESOPHAGUS: Esophagitis, hiatal hernia. Dysphagia likely due to esophageal motility disorder versus EOE. STOMACH: Gastritis with antral erosions DUODENUM: Normal Plan: Await pathology results Patient has an appointment on 02/21/22 in the GI Clinic with Ruby Delgado M.D. Increase Omeprazole to 20 mg twice daily. Above findings were reviewed with the patient and GERD handouts were given in the discharge area Surgeon: Ruby Delgado MD Anesthesia: MAC (Elizabeth Castro CRNA) Was an Career Placement Specialist used for this Procedure?: Yes Career Placement Specialist: Elmo Walton Estimated blood loss (mL): 0 Pathology: other (A: SMALL BOWEL BXS R/O CELIAC B: GASTRIC ANTRUM R/O H PYLORI) Condition: stable Disposition: PACU
[2022-02-06 15:48] VITALS: BP 98/61; PULSE 82; RESP 17; TEMP 36.9; O2SAT 98
[2022-02-06 16:03] VITALS: BP 111/69; PULSE 85; RESP 16; TEMP 36.3; O2SAT 98
--- NOTE | 2022-02-06 17:12 | W.PM.OPN ---
Operative Note Operative Note Date of Service: 02/06/22 Narrative: Pre-op diagnosis: FU of GERD and PUD Post-op diagnosis:?other (Hiatal hernia, erosive esophagitis, gastritis) Procedure: FLEXIBLE TRANSORAL UPPER GASTROINTESTINAL ENDOSCOPY WITH BIOPSIES Consent:?Indications for the procedure and potential complications of bleeding, perforation, reaction to medications and missed diagnosis were discussed with the patient and informed consent was obtained. Instrument:?Olympus GIF H 190 mid size upper endoscope Monitoring: Vital signs and clinical assessment, continuous EKG monitoring, Pulse oximetry, Carbon Dioxide monitoring and blood pressure monitoring were done throughout the procedure. Procedure:?The patient was placed in the left lateral decubitis position and pre-procedure medications were administered and a bite block was placed. The endoscope was inserted into the mouth and advanced under direct vision to the third part of duodenum. A careful inspection was made as the upper endoscope was withdrawn including a retroflexed examination of the proximal stomach; Findings and interventions are described below. Findings: Larynx:? Normal Esophagus: GE junction at 34 cms, hiatal hernia 34 to 37 cms. A 1 cms chronic appearing erosion at GE junction. A few focal chronic appearing linear erosions in the distal esophagus from 30 to 34 cms. Stomach: Mild diffuse gastric erythema with antral erosions. Biopsies were obtained. Grade 4 flap valve on retroflexed examination of the cardia. Duodenum: Normal bulb and descending duodenum. Biopsies were obtained from 3rd part of duodenum to check for celiac sprue. Intervention: Biopsies as noted above Impression and Post Procedure Diagnosis: Endoscopy Findings: LARYNX:? Changes suggestive of LPRD ESOPHAGUS:? Esophagitis, hiatal hernia.? Dysphagia likely due to esophageal motility disorder versus EOE. STOMACH:? Gastritis with antral erosions DUODENUM:? Normal Plan: Await pathology results Patient has an appointment on 02/21/22 in the GI Clinic with? Ruby Delgado M.D. Increase Omeprazole to 20 mg twice daily. Above findings were reviewed with the patient and GERD? handouts were given in the discharge area Surgeon: Ruby Delgado MD Anesthesia:?MAC (Elizabeth Castro CRNA) Was an Information Security Officer used for this Procedure?:?Yes Information Security Officer:?Elmo Walton Estimated blood loss (mL):?0 Pathology:?other (A: SMALL BOWEL BXS R/O CELIAC? B: GASTRIC ANTRUM R/O H PYLORI) Condition:?stable Disposition:?PACU
== END 2022-02-06 16:24 | disposition home or self-care (01) ==
PROVIDERS: PCP Internal Medicine; Visit Provider Internal Medicine Gastroenterology
PROC: 0DJ08ZZ Inspection of Upper Intestinal Tract, Via Natural or Artificial Opening Endoscopic (ICD-10-PCS; CPT 43235; principal; 2022-02-06 14:30)
DX: K21.00 Gastro-esophageal reflux disease with esophagitis, without bleeding (principal); K29.50 Unspecified chronic gastritis without bleeding; K25.9 Gastric ulcer, unspecified as acute or chronic, without hemorrhage or perforation; K44.9 Diaphragmatic hernia without obstruction or gangrene; D86.0 Sarcoidosis of lung; F41.8 Other specified anxiety disorders; N20.0 Calculus of kidney; K74.3 Primary biliary cirrhosis; M81.0 Age-related osteoporosis without current pathological fracture; Z79.899 Other long term (current) drug therapy; Z88.8 Allergy status to other drugs, medicaments and biological substances; Z90.49 Acquired absence of other specified parts of digestive tract
CPT/HCPCS: 43239; 88305; 88342; J3010

== ENCOUNTER 2022-02-08 08:55 | Outpatient (REF) | payer OTHER, SELFPAY ==
--- NOTE | ~2022-02-08 | MM_ITS ---
EXAMINATION: BONE DENSITOMETRY CLINICAL INDICATION: Age-related osteoporosis without current pathological fracture. COMPARISON: Baseline BD dated 08/18/2019. TECHNIQUE: Using a [employer]esty DXA System (software version: 13.1) manufactured by [employer], dual-energy x-ray absorptiometry was performed of the lumbar spine and left hip. The images are of good technical quality. Summary results are attached. FINDINGS: AP SPINE L1-L4: Current: BMD 0.943 g/cm2, Z-score -2.8, T-score -2.0, osteopenia, 4.1% increase from baseline (<5% change is not significant). Baseline: BMD 0.906 g/cm2. LEFT FEMUR, NECK: Current: BMD 0.820 g/cm2, Z-score -1.6, T-score -1.6, osteopenia. Baseline: BMD 0.880 g/cm2. LEFT FEMUR, TOTAL: Current: BMD 0.924 g/cm2, Z-score -1.0, T-score -0.7, normal, 4.5% increase from baseline (<5% change is not significant). Baseline: BMD 0.884 g/cm2. IDENTIFIED RISK FACTORS: Osteoporosis. Early menopause, secondary osteoporosis, glucocorticoids (chronic), hysterectomy, bilateral oophorectomy. HISTORY OF FRACTURE: None listed. MEDICATIONS: Calcium supplements or multivitamin, vitamin D, ERT/SERMS. MM/XR DEXA axial skeleton IMPRESSION: 1. DIAGNOSIS: Osteopenia based on the lowest T-score value of -2.0 in the lumbar spine applying World Health Organization criteria. 2. 10-YEAR FRACTURE RISK PREDICTION, FRAX: Major osteoporotic fracture (clinical spine, forearm, hip or shoulder) 4.6%. Hip fracture 0.5%. 3. Treatment Recommendations: NOF guidelines recommend consideration for treatment in postmenopausal women and men age 50 and older presenting with the following: -A hip or vertebral (clinical or morphometric) fracture. -T-score less than or equal to -2.5 at the femoral neck or spine after appropriate evaluation to exclude secondary causes. -Low bone mass at the hip or spine and a 10-year fracture probability by FRAX of greater than or equal to 3% for hip fracture or greater than or equal to 20% for major osteoporotic fracture based on the [place] adapted WHO algorithm. 4. Other Recommendations: All treatment decisions require clinical judgment and consideration of individual patient factors, including patient preferences, comorbidities, previous drug use, risk factors not captured in the FRAX model (e.g. frailty, falls, vitamin D deficiency, increased bone turnover, interval significant decline in bone density) and possible under or overestimation of fracture risk by FRAX. Additional medical evaluation for secondary cause of low bone mineral density may be appropriate. FUTURE SCAN RECOMMENDATION: People with diagnosed cases of osteoporosis or at high risk for fracture should have regular bone mineral density tests. For patients eligible for Medicare, routine testing is allowed once every 2 years. The testing frequency can be increased to one year for patients who have rapidly progressing disease, those who are receiving or discontinuing medical therapy to restore bone mass, or have additional risk factors.
== END 2022-02-08 08:56 | disposition home or self-care (01) ==
LOC: HO.MAMMO 08:55
PROVIDERS: Visit Provider Internal Medicine Gastroenterology
DX: M81.0 Age-related osteoporosis without current pathological fracture (principal); Z78.0 Asymptomatic menopausal state; E27.49 Other adrenocortical insufficiency; Z90.710 Acquired absence of both cervix and uterus; Z90.722 Acquired absence of ovaries, bilateral; Z79.810 Long term (current) use of selective estrogen receptor modulators (SERMs)
CPT/HCPCS: 77080

== ENCOUNTER → 2022-03-23 09:11 | Outpatient (BNVA) | payer OTHER, SELFPAY | PROVIDERS: PCP Internal Medicine; Visit Provider Internal Medicine Pulmonary Disease | DX: R91.8 Other nonspecific abnormal finding of lung field (principal); D86.0 Sarcoidosis of lung | CPT/HCPCS: 99212 ==

== ENCOUNTER 2022-04-04 11:22 | Outpatient (REF) | payer OTHER, SELFPAY ==
--- NOTE | ~2022-04-04 | CT_ITS ---
EXAMINATION: CT CHEST WITHOUT CONTRAST CLINICAL INFORMATION: Sarcoidosis COMPARISON: Previous chest CT December 2021 TECHNIQUE: Multidetector volumetric CT imaging of the chest was done. Axial MIP volume rendering provided. Sagittal and coronal reformatted images were obtained. This CT examination was performed using dose optimization techniques as appropriate, variously including the following: *Automated exposure control *Adjustment of mA and/or kV according to patient size (this includes techniques or standardized protocols for targeted exams where dose is matched to indication/reason for exam; i.e. extremities or head) *Use of iterative reconstruction technique DLP: 296 mGy-cm FINDINGS: LUNGS: There is interval decrease in size and number of bilateral pulmonary nodules. Largest pulmonary nodule measures 4 x 10 mm axial image 78 series 5 in the right upper lobe compared to 7 x 10 mm January 2022 exam. Previously identified 1 cm right lower lobe nodule is faintly seen axial image 238 series 5. Previously identified 5 x 9 mm lingular nodule is faintly seen for example axial image 190 series 5. There are innumerable 1 to 2 mm scattered micronodules seen that do not appear appreciably changed. MEDIASTINUM: There is interval decrease in mediastinal and hilar lymphadenopathy. Largest lymph nodes are right paratracheal lymph node measuring 7 mm in short axis compared to 1.2 cm and subcarinal lymph node measuring 1.0 cm in short axis compared to 1.7 cm on January 2022 exam. No new adenopathy. Small heart size. No pericardial effusion. Small right cardiophrenic angle or anterior diaphragmatic lymph nodes also decreased in size. PLEURA: There is no pleural effusion. No pleural mass or thickening. AXILLA: No lymphadenopathy. UPPER ABDOMEN: The spleen is not completely imaged but appears prominent. The gallbladder has been removed. OSSEOUS STRUCTURES: There are degenerative changes of the spine. CT/CT chest wo IV con IMPRESSION: Interval decrease in bilateral pulmonary nodules and mediastinal and hilar adenopathy. Fleischner guidelines were followed.
== END 2022-04-04 11:23 | disposition home or self-care (01) ==
LOC: HO.CT 11:22
PROVIDERS: Visit Provider Internal Medicine Pulmonary Disease
DX: D86.0 Sarcoidosis of lung (principal); R91.8 Other nonspecific abnormal finding of lung field
CPT/HCPCS: 71250

== ENCOUNTER → 2022-04-06 11:49 | Outpatient (BNVA) | payer OTHER, SELFPAY | PROVIDERS: PCP Internal Medicine; Visit Provider Surgery Vascular Surgery | DX: I83.11 Varicose veins of right lower extremity with inflammation (principal) | CPT/HCPCS: 99202 ==

== ENCOUNTER 2022-05-26 09:29 | Outpatient (REF) | payer OTHER, SELFPAY ==
[2022-05-26 11:16] LABS: Alanine Aminotransferase 88 U/L (0-31); Albumin Level 4.2 g/dL (3.5-5.0); Alkaline Phosphatase 235 U/L (39-117); Aspartate Amino Transferase 53 U/L (5-31); Bilirubin Direct 0.3 mg/dL (0.0-0.5); Bilirubin Total 0.8 mg/dL (0.0-1.0); Total Protein 7.7 g/dL (6.5-8.0)
== END 2022-05-26 09:30 | disposition home or self-care (01) ==
LOC: HO.LAB 09:29
PROVIDERS: PCP Internal Medicine; Visit Provider Internal Medicine Pulmonary Disease
DX: K74.3 Primary biliary cirrhosis (principal)
CPT/HCPCS: 36415; 80076

== ENCOUNTER 2022-06-05 10:28 | Outpatient (REF) | payer OTHER, SELFPAY ==
--- NOTE | ~2022-06-05 | US_ITS ---
EXAMINATION: US VENOUS LOWER EXTREMITIES (REFLUX EXAM), BILATERAL CLINICAL INFORMATION: Leg pain and varicose veins. COMPARISON: None TECHNIQUE: Color flow triplex imaging and compression Doppler was performed to evaluate both the deep and the superficial systems bilaterally. To evaluate the superficial system, the examination was performed in the upright position. Color-flow Doppler ultrasound and compression ultrasound were utilized. In addition, maneuvers were utilized to demonstrate reflux. FINDINGS: 1. DEEP VENOUS ULTRASOUND OF THE RIGHT LOWER EXTREMITY: Respiratory variation, normal compression and augmented flow are noted in the right common femoral vein as well as the right popliteal vein and there is no evidence of deep venous thrombosis at these locations. Aside from 0.4 seconds of reflux in the common femoral vein, there is no other reflux in the deep system in either the femoral vein or the popliteal vein. There is no evidence of a Longo's cyst. 2. SUPERFICIAL ULTRASOUND WITH DOPPLER OF RIGHT LOWER EXTREMITY: The right great saphenous vein at the saphenofemoral junction measures 5.0 mm, at the proximal thigh 5.0 mm, at the mid thigh 2.0 mm, above the knee 2.0 mm, at the knee 2.0 mm, [id number] 2.0 mm, midcalf 2.0 mm and at the ankle measures 2.0 mm. There is no reflux demonstrated in the right great saphenous vein. Duplicated Right Great Saphenous Vein: None. The right small saphenous vein measures 2.0 mm and shows no reflux. Accessory Vein of Giacomini: None. Incompetent Perforators: None. Varices Present: There is a varix arising from the GSD measuring 4 mm without reflux. 3. DEEP VENOUS ULTRASOUND OF THE LEFT LOWER EXTREMITY: Respiratory variation, normal compression and augmented flow are noted in the left common femoral vein as well as the left popliteal vein and there is no evidence of deep venous thrombosis at these locations. There is no evidence of reflux in the deep system in either the common femoral vein or the popliteal vein. There is no evidence of a Longo's cyst. 4. SUPERFICIAL ULTRASOUND WITH DOPPLER OF LEFT LOWER EXTREMITY: Left great saphenous vein at the saphenofemoral junction measures 6.0 mm, at the proximal thigh 4.0 mm, at the mid thigh 2.0 mm, above the knee 3.0 mm, at the knee 3.0 mm, [id number]-[id number] 2.0 mm, midcalf 2.0 mm and at the ankle measures 2.0 mm. There is segmental reflux in the mid thigh for 3.2 seconds. Duplicated Left Great Saphenous Vein: There is a lateral accessory saphenous measuring 3 mm that does not reflux. The left small saphenous vein measures 4 mm and shows no reflux. Accessory Vein of Giacomini: None. Incompetent Perforators: None. Varices Present: None. US/US venous duplex LE BI IMPRESSION: 1. Aside from a small amount of reflux in the right common femoral vein, no other reflux is seen and no DVT is present. 2. Segmental reflux left GSV only.
== END 2022-06-05 10:29 | disposition home or self-care (01) ==
LOC: HO.US 10:28
PROVIDERS: Visit Provider Surgery Vascular Surgery
DX: I83.11 Varicose veins of right lower extremity with inflammation (principal)
CPT/HCPCS: 93970

== ENCOUNTER → 2022-06-13 07:36 | Outpatient (REF) | payer OTHER, SELFPAY ==
--- NOTE | 2022-06-13 07:42 | CA_ITS ---
Acquisition Time: 2022-06-13 07:46:30 Total Exercise Time: 00:06:14 Test Indications: CP Medications: SEE CHART Protocol: EPI Max HR: 155 BPM 88% of Pred: 176 BPM Max BP: 130/088 mmHG Max Work Load: 7.3 METS Exercise stress test with exercise 6 min 14 sec of Epi protocol, achieving 88% MPHR, 7.3 METs, with mild to mod sob, no chest discomfort, without arrythmia, with normotensive response to exercise, without EKG changes meeting criteria for ischemia. In recovery breathing quickly normalized. Test reviewed with Dr Basilio Referred By: Hima Oquendo Overread By: KENNY YANEZ
== END ==
LOC: HO.CARD 07:36
PROVIDERS: Visit Provider Internal Medicine
DX: R07.9 Chest pain, unspecified (principal)
CPT/HCPCS: 93017